=== PATIENT | female | born 1970 | race Two or more races ===

== ENCOUNTER 2021-12-15 03:35 | Emergency (ER) | payer OTHER ==
[2021-12-15] MEDS ORDERED: ONDANSETRON 4 MG/2 ML VIAL ONE (03:45)
--- NOTE | 2021-12-15 03:50 | NUR ---
Patient walked into the ER. A/O X4. NAD noted.
[2021-12-15] MEDS ORDERED: IV NS 1000 ML 1,000 ML IV ONE (04:00)
[2021-12-15] MEDS ORDERED: ONDANSETRON 4 MG/2 ML VIAL IV ONE (04:00)
[2021-12-15 04:36] LABS: HEMATOCRIT 38.1 % (31.2-41.9); MEAN CORPUSCULAR HEMOGLOBIN 28.3 uug (24.7-32.8); MEAN CORPUSCULAR VOLUME 84.7 fL (75.5-95.3); PLATELET COUNT (AUTO) 218 K/uL (179-408)
[2021-12-15 04:38] LABS: CREATININE 0.7 mg/dL (0.6-1.3); POTASSIUM 3.5 mmol/L (3.5-5.1)
--- NOTE | 2021-12-15 04:40 | NUR ---
Dr. Perea at bedside. MSE in [facility].
[2021-12-15 04:44] LABS: BILIRUBIN,TOTAL 0.3 mg/dL (0.2-1.0)
[2021-12-15 04:56] LABS: *BILIRUBIN,URIN NEGATIVE (NEGATIVE); *BLOOD, URINE NEGATIVE (NEGATIVE); *CLARITY,URINE CLEAR (CLEAR); *COLOR,URINE YELLOW (YELLOW); *KETONES,URINE NEGATIVE (NEGATIVE); *UROBILINOGEN,URINE 0.2 E.U./dl (NORMAL); LEUKOCYTE ESTERASE ,URINE TRACE (NEGATIVE); NITRITE, URINE NEGATIVE (NEGATIVE); PH,URINE 7.5 (5.0-8.0); UGLUCOSE NEGATIVE (NEGATIVE)
[2021-12-15 04:58] LABS: BACTERIA,URINE RARE /HPF (NONE SEEN); RBC,URINE 0-3 /HPF (0-3); SQUAMOUS EPITHELIAL CELL,UR FEW /HPF (NONE SEEN)
[2021-12-15] MEDS ORDERED: MAG HYDROX/AL HYDROX/SIMETH 30 ML LIQUID UDC PO ONE (05:00)
[2021-12-15] MEDS ORDERED: DICYCLOMINE HCL LIQ 10 MG/5 ML UDC PO ONE (05:00)
[2021-12-15] MEDS ORDERED: LIDOCAINE VISCUS 2% 15 ML UDC MM ONE (05:00)
[2021-12-15] MEDS ORDERED: LIDOCAINE VISCUS 2% 15 ML UDC ONE (05:11)
[2021-12-15] MEDS ORDERED: DICYCLOMINE HCL LIQ 10 MG/5 ML UDC ONE (05:11)
[2021-12-15] MEDS ORDERED: MAG HYDROX/AL HYDROX/SIMETH 30 ML LIQUID UDC ONE (05:11)
[2021-12-15] MEDS ORDERED: ONDA4TAB11 PO (06:33)
[2021-12-15] MEDS ORDERED: FAMO-132 PO (06:33)
--- NOTE | 2021-12-15 06:45 | NUR ---
Patient discharged to home in stable condition. A/O x4. NAD note. All belogings with patient. Written and verbal after care instructions given. Patient verbalizes understanding of instructions. Stressed follow up or return to ER for worsening s/s.
[2021-12-15 06:53] VITALS: BP 131/88
== END 2021-12-15 06:45 | disposition home or self-care (01) ==
LOC: ER 03:41
DX: R10.13 Epigastric pain (principal); R11.10 Vomiting, unspecified; R42 Dizziness and giddiness; Z88.6 Allergy status to analgesic agent; Z88.0 Allergy status to penicillin
CPT/HCPCS: 99285; 96374; 76705; 96361; 80053; 81001; 82962; 83690; 85025; 84484; 36415; 93005; J2405; J7040; A4663